=== PATIENT | male | born 1960 | race Caucasian/White ===

== ENCOUNTER 2020-09-20 07:30 | Outpatient (CLI) | payer MEDICARE ==
[2020-09-20] MEDS ORDERED: Iopamidol-370 76% 500 ML 1 ML ONE (17:50)
== END 2020-09-20 07:31 | disposition home or self-care (01) ==
LOC: BICCT 07:30
PROVIDERS: ATTEND Family Medicine
DX: R10.32 Left lower quadrant pain (principal); K76.9 Liver disease, unspecified; R19.00 Intra-abdominal and pelvic swelling, mass and lump, unspecified site
CPT/HCPCS: 74177; Q9967